=== PATIENT | female | born 1960 | race Caucasian/White ===

== ENCOUNTER → 2017-09-19 | Outpatient (CLI) | payer BC, OTHER ==
--- NOTE | 2017-09-19 16:59 | WOMENS IMAGING REPORT ---
EXAM DESCRIPTION: BILAT SCREENING MAMMO W/CAD COMPLETED DATE/TIME: 09/19/2017 3:32 pm REASON FOR STUDY: ROUTINE SCREENING; Z12.31 Z12.31 ENCNTR SCREEN MAMMOGRAM FOR MALIGNANT NEOPLASM O F TORRIE COMPARISON: 2009 to 2014 TECHNIQUE: Standard craniocaudal and mediolateral oblique views of each breast recorded using Lalalamaa l acquisition. LIMITATIONS: None. FINDINGS: No masses, calcifications or architectural distortion. No areas of suspicion. Read with the assistance of CAD. .[facility] - R2 Cenova Version 1.3 .[facility] Imaging - R2 Cenova Version 1.3 .[facility] Imaging - R2 Cenova Version 2.4 .[facility] [place] Cenova Version 2.4 .[facility] - R2 [employer] Version 9.2 IMPRESSION: NORMAL MAMMOGRAM. BIRADS 1. BREAST DENSITY: b. There are scattered areas of fibroglandular density. BIRAD: 1 NEGATIVE RECOMMENDATION: ROUTINE SCREENING COMMENT: The patient has been notified of the results by letter per SA requirements. Additional no tification policies are in place for contacting patient with suspicious or incomplete findings. Quality ID #[id number]: The [employer] recommends an annual screening mammogram for women aged 40 years or over. This facility utilizes a reminder system to ensure that all patients receive reminder letters, and/or direct phone calls for appointments. This includes reminders for routine scr eening mammograms, diagnostic mammograms, or other Breast Imaging Interventions when appropriate. Th is patient will be placed in the appropriate reminder system. The [employer] (ACR) has developed recommendations for screening MRI of the breast s in certain patient populations, to be used in conjunction with mammography. Breast MRI surveillanc e may be appropriate for women with more than 20% lifetime risk of developing breast cancer as deter mined by genetic testing, significant family history of the disease, or history of mantle radiation f or Hodgkins Disease. ACR Practice Guidelines 2008. TECHNICAL DOCUMENTATION: FINDING NUMBER: (1) ASSESSMENT: (1) JOB ID: [id number] [employer]- All Rights Reserved
== END ==
LOC: WI 14:03
PROVIDERS: ATTEND Nurse Practitioner Acute Care
DX: Z12.31 Encounter for screening mammogram for malignant neoplasm of breast (principal)
CPT/HCPCS: 77067

== ENCOUNTER 2018-02-13 13:04 | Emergency (ER) | payer BC ==
[2018-02-13] MEDS ORDERED: ONDANSETRON 4 MG TAB.RAPDIS PO ONE (13:55)
--- NOTE | 2018-02-13 13:57 | ER Document Report ---
ED Medical Screen (RME) - General Chief Complaint: Abdominal Pain Stated Complaint: RIGHT SIDE ABDOMINAL PAIN Time Seen by Provider: 02/13/18 13:54 Notes: RAPID MEDICAL EVALUATION DISCLOSURE I have seen this patient as part of a Rapid Medical Evaluation and, if applicable, placed any initially appropriate orders. The patient will be seen and fully evaluated, including a full history and physical exam, by a provider ( in Main ED or Fast Track) when a room becomes available. 57-year-old female here with complaints of right upper quadrant pain nausea vomiting ongoing for the past 2 weeks intermittently. Initially, she thought it was her new diabetes medication however now is wondering if it is something else. She has worsening of the symptoms with eating. She has not tried anything for the symptoms other than Tums which is not helping. She still has her gallbladder but no history of stones. EXAM Moderate right upper quadrant TTP Minimal epigastric TTP TRAVEL OUTSIDE OF THE [place] IN LAST 30 DAYS: No - Related Data Allergies/Adverse Reactions: No Known Allergies Allergy (Verified 02/13/18 13:05) Past Medical History - Past Medical History Cardiac Medical History: Reports: Hx Hypertension Denies: Hx Coronary Artery Disease, Hx Heart Attack Pulmonary Medical History: Denies: Hx Asthma, Hx Bronchitis, Hx COPD, Hx Pneumonia Neurological Medical History: Denies: Hx Cerebrovascular Accident, Hx Seizures Endocrine Medical History: Reports: Hx Diabetes Mellitus Type 2 Musculoskeltal Medical History: Reports Hx Arthritis - GENERALIZED THROUGHOUT Past Surgical History: Reports: Hx Section - 2, Hx Hysterectomy, Hx Orthopedic Surgery - R knee - Immunizations Immunizations up to date: Yes Hx Diphtheria, Pertussis, Tetanus Vaccination: Yes Physical Exam - Vital signs Vitals: Temp Pulse Resp BP Pulse Ox 98.9 F 93 16 135/75 H 96 02/13/18 13:12 02/13/18 13:12 02/13/18 13:12 02/13/18 13:12 02/13/18 13:12 Course - Vital Signs Vital signs: Temp Pulse Resp BP Pulse Ox 98.9 F 93 16 135/75 H 96 02/13/18 13:12 02/13/18 13:12 02/13/18 13:12 02/13/18 13:12 02/13/18 13:12 Doctor's Discharge - Discharge Referrals: YUNG MCCORMICK, LOGGING ENGINEER [Primary Care Provider] - Follow up as needed
[2018-02-13 14:37] LABS: ABSOLUTE BASOPHILS # (AUTO) 0.1 10^3/uL (0.0-0.2); ABSOLUTE EOSINOPHILS # (AUTO) 0.1 10^3/uL (0.0-0.6); ABSOLUTE LYMPHOCYTES (AUTO) 2.6 10^3/uL (0.5-4.7); ABSOLUTE MONOCYTES (AUTO) 0.5 10^3/uL (0.1-1.4); ABSOLUTE NEUT (AUTO) 4.7 10^3/uL (1.7-8.2); BASOPHILS % (AUTO) 0.8 % (0-2); EOSINOPHILS % (AUTO) 0.9 % (0-6); HEMATOCRIT 41.4 % (36.0-47.0); HEMOGLOBIN 14.2 g/dL (12.0-15.5); MEAN CORPUSCULAR HEMOGLOBIN 28.5 pg (27.0-33.4); MEAN CORPUSCULAR HGB CONC 34.4 g/dL (32.0-36.0); MEAN CORPUSCULAR VOLUME 83 fl (80-97); MONOCYTES % (AUTO) 6.3 % (3-13); PLATELET COUNT 287 10^3/uL (150-450); RED CELL DISTRIBUTION WIDTH 14.3 % (11.5-14.0); TOTAL CELLS COUNTED % (AUTO) 100 %; WHITE BLOOD COUNT 7.9 10^3/uL (4.0-10.5)
[2018-02-13 14:49] LABS: ALANINE AMINOTRANSFERASE 31 U/L (9-52); ALBUMIN 4.3 g/dL (3.5-5.0); ALKALINE PHOSPHATASE 127 U/L (38-126); ANION GAP 13 (5-19); ASPARTATE AMINO TRANSFERASE 28 U/L (14-36); BILIRUBIN,DIRECT 0.3 mg/dL (0.0-0.4); BILIRUBIN,TOTAL 0.6 mg/dL (0.2-1.3); BLOOD UREA NITROGEN 13 mg/dL (7-20); CALCIUM 9.7 mg/dL (8.4-10.2); CARBON DIOXIDE 29 mmol/L (22-30); CHLORIDE 100 mmol/L (98-107); GLUCOSE 84 mg/dL (75-110); LIPASE 106.1 U/L (23-300); POTASSIUM 3.6 mmol/L (3.6-5.0); TOTAL PROTEIN 7.7 g/dL (6.3-8.2)
--- NOTE | 2018-02-13 15:12 | RADIOLOGY REPORT (SQ) ---
EXAM DESCRIPTION: U/S ABDOMEN LIMITED W/O DOP COMPLETED DATE/TIME: 02/13/2018 3:00 pm REASON FOR STUDY: RUQ pain after eating COMPARISON: 10/23/2014 abdominal ultrasound TECHNIQUE: Dynamic and static grayscale images acquired of the abdomen and recorded on PACS. Additio nal selected color Doppler and spectral images recorded. LIMITATIONS: Large patient, midline bowel gas, fatty liver FINDINGS: PANCREAS: Not well seen LIVER: Liver is difficult to penetrate with the ultrasound energy from diffuse fatty infiltration. LIVER VASCULATURE: Normal directional flow of the main portal vein and hepatic veins. GALLBLADDER: No stones. Normal wall thickness. No pericholecystic fluid. ULTRASOUND-DETECTED CORRALES'S SIGN: Negative. INTRAHEPATIC DUCTS AND COMMON DUCT: No gross intrahepatic biliary ductal dilatation. Common duct at the josy hepatis normal caliber. Distal common duct not well seen due to duodenum gas INFERIOR VENA CAVA: Not well seen AORTA: No aneurysm. RIGHT KIDNEY: Normal size. Normal echogenicity. No solid or suspicious masses. No hydronephrosis. No calcifications. PERITONEAL AND RIGHT PLEURAL SPACE: No ascites or effusions. OTHER: No other significant findings. IMPRESSION: No gallstones Fatty liver TECHNICAL DOCUMENTATION: JOB ID: [id number] [employer]- All Rights Reserved Reading location - IP/workstation name: [email or web address]
[2018-02-13 16:17] LABS: APPEARANCE,URINE SLIGHTLY-CLOUDY; BILIRUBIN,URINE NEGATIVE (NEGATIVE); COLOR,URINE YELLOW; GLUCOSE, URINE NEGATIVE (NEGATIVE); KETONES,URINE NEGATIVE (NEGATIVE); LEUKOCYTE ESTERASE,URINE NEGATIVE (NEGATIVE); NITRITE,URINE NEGATIVE (NEGATIVE); PROTEIN,URINE NEGATIVE (NEGATIVE); URINE SPECIFIC GRAVITY 1.008; UROBILINOGEN,URINE NEGATIVE mg/dL (<2.0)
--- NOTE | 2018-02-13 16:26 | ER Document Report ---
ED GI/ - General Chief Complaint: Abdominal Pain Stated Complaint: RIGHT SIDE ABDOMINAL PAIN Time Seen by Provider: 02/13/18 13:54 Mode of Arrival: Ambulatory Information source: Patient TRAVEL OUTSIDE OF THE [place] IN LAST 30 DAYS: No - HPI Patient complains to provider of: Abdominal pain, Vomiting Onset: Other - 2 weeks Timing/Duration: Intermittent Quality of pain: Sharp Severity at maximum: Moderate Severity in ED: Mild Pain Level: 1 Location: RUQ Associated symptoms: Diarrhea, Nausea, Vomiting Exacerbated by: Food Relieved by: Denies Similar symptoms previously: Yes Recently seen / treated by doctor: No Notes: 02/13/18 16:24 Patient is a 57-year-old female presenting to the emergency room today complaining of right upper quadrant abdominal pain that has been bothering her for 2 weeks, states it is sharp and stabbing earlier today but now it is almost gone, she reports associated nausea and vomiting, as well as diarrhea, and chills but no fever - Related Data Allergies/Adverse Reactions: No Known Allergies Allergy (Verified 02/13/18 13:05) Past Medical History - General Information source: Patient - Social History Smoking Status: Never Smoker Frequency of alcohol use: None Drug Abuse: None Family History: Reviewed & Not Pertinent Patient has suicidal ideation: No Patient has homicidal ideation: No - Past Medical History Cardiac Medical History: Reports: Hx Hypertension Denies: Hx Coronary Artery Disease, Hx Heart Attack Pulmonary Medical History: Denies: Hx Asthma, Hx Bronchitis, Hx COPD, Hx Pneumonia Neurological Medical History: Denies: Hx Cerebrovascular Accident, Hx Seizures Endocrine Medical History: Reports: Hx Diabetes Mellitus Type 2 Renal/ Medical History: Denies: Hx Peritoneal Dialysis Musculoskeletal Medical History: Reports Hx Arthritis - GENERALIZED THROUGHOUT Past Surgical History: Reports: Hx Section - 2, Hx Hysterectomy, Hx Orthopedic Surgery - R knee, Hx Tubal Ligation - Immunizations Immunizations up to date: Yes Hx Diphtheria, Pertussis, Tetanus Vaccination: Yes Review of Systems - Review of Systems Constitutional: No symptoms reported EENT: No symptoms reported Cardiovascular: No symptoms reported Respiratory: No symptoms reported Gastrointestinal: See HPI Genitourinary: No symptoms reported Female Genitourinary: No symptoms reported Musculoskeletal: No symptoms reported Skin: No symptoms reported Hematologic/Lymphatic: No symptoms reported Neurological/Psychological: No symptoms reported -: Yes All other systems reviewed and negative Physical Exam - Vital signs Vitals: Temp Pulse Resp BP Pulse Ox 98.9 F 93 16 135/75 H 96 02/13/18 13:12 02/13/18 13:12 02/13/18 13:12 02/13/18 13:12 02/13/18 13:12 Interpretation: Normal - General General appearance: Appears well, Alert - HEENT Head: Normocephalic, Atraumatic Eyes: Normal Pupils: PERRL - Respiratory Respiratory status: No respiratory distress Chest status: Nontender Breath sounds: Normal Chest palpation: Normal - Cardiovascular Rhythm: Regular Heart sounds: Normal auscultation Murmur: No - Abdominal Inspection: Normal Distension: No distension Bowel sounds: Normal Tenderness: Tender - Epigastric and right upper quadrant Organomegaly: No organomegaly - Back Back: Normal, Nontender - Extremities General upper extremity: Normal inspection, Nontender, Normal color, Normal ROM , Normal temperature General lower extremity: Normal inspection, Nontender, Normal color, Normal ROM , Normal temperature, Normal weight bearing. No: Tosin's sign - Neurological Neuro grossly intact: Yes Cognition: Normal Orientation: AAOx4 Preston Coma Scale Eye Opening: Spontaneous German Coma Scale Verbal: Oriented German Coma Scale Motor: Obeys Commands German Coma Scale Total: 15 Speech: Normal Motor strength normal: LUE, RUE, LLE, RLE Sensory: Normal - Psychological Associated symptoms: Normal affect, Normal mood - Skin Skin Temperature: Warm Skin Moisture: Dry Skin Color: Normal Course - Re-evaluation Re-evalutation: 02/13/18 16:25 Physical exam findings are benign except for mild epigastric and right upper quadrant tenderness, lab and imaging findings discussed with patient at bedside which are unremarkable, patient discharged with instructions for follow-up and advised to return if symptoms worsen, patient acknowledges understanding and agreement with this plan - Vital Signs Vital signs: Temp Pulse Resp BP Pulse Ox 98.9 F 93 16 135/75 H 96 02/13/18 13:12 02/13/18 13:12 02/13/18 13:12 02/13/18 13:12 02/13/18 13:12 - Laboratory Result Diagrams: 02/13/18 14:25 02/13/18 14:25 Laboratory results interpreted by me: 02/13/18 02/13/18 14:25 14:25 RDW 14.3 H Alkaline Phosphatase 127 H - Diagnostic Test Radiology reviewed: Image reviewed, Reports reviewed Discharge - Discharge Clinical Impression: Abdominal pain Qualifiers: Abdominal location: right upper quadrant Qualified Code(s): R10.11 - Right upper quadrant pain Condition: Stable Disposition: HOME, SELF-CARE Instructions: Abdominal Pain ([facility]) Additional Instructions: Follow up with your primary care provider in one to 2 days. Return to the emergency room immediately if symptoms worsen or any additional concerns. Prescriptions: Ondansetron [Zofran Odt 4 mg Tablet] 1 - 2 tab PO Q4H #10 tab.rapdis Referrals: YUNG MCCORMICK, SKIP OPERATOR [Primary Care Provider] - Follow up as needed
[2018-02-13 16:43] VITALS: BP 138/81
== END 2018-02-13 16:53 | disposition home or self-care (01) ==
LOC: ER 13:04
DX: R10.11 Right upper quadrant pain (principal); R10.811 Right upper quadrant abdominal tenderness; R10.816 Epigastric abdominal tenderness; R11.2 Nausea with vomiting, unspecified; R19.7 Diarrhea, unspecified; R68.83 Chills (without fever); E11.9 Type 2 diabetes mellitus without complications; I10 Essential (primary) hypertension
CPT/HCPCS: 99284; 36415; 87086; 83690; 85025; 80053; 81001; 76705; S0119